=== PATIENT | female | born 1995 | race Caucasian/White ===

== ENCOUNTER 2020-06-30 13:08 | Emergency (ER) | payer BC, MEDICAID ==
[~2020-06-30] VITALS: Ht 162.6 cm; Wt 57.0 kg
[2020-06-30 14:15] LABS: BASOPHILS % (AUTO) 0.2 % (0-1); EOSINOPHILS % (AUTO) 0.3 % (0-6); HEMATOCRIT 39.1 % (35.0-45.0); HEMOGLOBIN 13.1 g/dl (12.0-16.0); LYMPHOCYTES # (AUTO) 1.3 X10'3 (1.1-4.8); LYMPHOCYTES % (AUTO) 9.6 % (21-51); MEAN CORPUSCULAR HEMOGLOBIN 31.3 PG (27.0-31.0); MEAN CORPUSCULAR HGB CONC 33.6 g/dL (33.0-36.5); MEAN CORPUSCULAR VOLUME 93.2 FL (78-98); MEAN PLATELET VOLUME 7.5 FL (7.4-10.4); MONOCYTES # (AUTO) 0.8 X10'3 (0-0.9); MONOCYTES % (AUTO) 5.8 % (2-12); NEUTROPHILS # (AUTO) 11.5 X10'3 (1.8-7.7); NEUTROPHILS % (AUTO) 84.1 % (42-75); PLATELET COUNT 269 X10'3 (140-440); RED BLOOD COUNT 4.19 X10'6 (4.20-5.60); RED CELL DISTRIBUTION WIDTH 13.4 % (11.5-14.5); WHITE BLOOD COUNT 13.6 X10'3 (4.5-11.0)
[2020-06-30 14:28] LABS: CLARITY,URINE CLOUDY (Clear); COLOR,URINE YELLOW (Yellow); GLUCOSE, URINE NEGATIVE (Neg); KETONES,URINE NEGATIVE (Neg); LEUKOCYTE ESTERASE ,URINE MODERATE (Neg); NITRITES, URINE POSITIVE (Neg); OCCULT BLOOD,URINE MODERATE (Neg); PROTEIN,URINE 30 mg/dl (Neg); UROBILINOGEN,URINE 0.2 E.U/dL (0.2-1.0)
[2020-06-30 14:29] LABS: UA COLLECTION TYPE CLN CATCH MIDSTREAM; URINE HCG NEGATIVE (NEG)
[2020-06-30 14:29] LABS: ALANINE AMINOTRANSFERASE 16 U/L (12-78); ALBUMIN 3.4 G/DL (3.4-5.0); ALBUMIN/GLOBULIN RATIO 0.8 (1.1-1.5); ALKALINE PHOSPHATASE 69 IU/L (46-116); ANION GAP 8 (8-16); ASPARTATE AMINO TRANSFERASE 16 U/L (10-37); BILIRUBIN,TOTAL 0.6 MG/DL (0.1-1.0); BLOOD UREA NITROGEN 7 MG/DL (7-18); BUN/CREATININE RATIO 8.9 (6.6-38.0); CALCIUM 8.9 MG/DL (8.5-10.1); CHLORIDE 101 MMOL/L (99-107); CREATININE 0.79 MG/DL (0.40-0.90); GLUCOSE 111 MG/DL (70-104); LIPASE 90 U/L (73-393); POTASSIUM 3.7 MMOL/L (3.5-5.1); SODIUM 134 MMOL/L (135-145); TOTAL CARBON DIOXIDE 25.1 MMOL/L (24-32); TOTAL PROTEIN 7.8 G/DL (6.4-8.2); eGFR 89 ML/MIN
[2020-06-30 14:38] LABS: MUCUS STRANDS MODERATE /LPF (Neg); SQUAMOUS EPITHELIAL CELL,UR FEW /LPF (FEW)
[2020-06-30 14:39] LABS: WBC CLUMPS,URINE FEW /HPF (NEGATIVE)
[2020-06-30 14:40] LABS: BACTERIA,URINE 4+ /HPF (Neg); RBC,URINE 0-2 /HPF (0-2); TRANSITIONAL EPI CELLS,URINE MODERATE /HPF; WBC,URINE TNTC /HPF (0-4)
[2020-06-30] MEDS ORDERED: CefTRIAXone/D5W-Rocephin 1gm 50 ML IV ONE (14:40)
[2020-06-30] MEDS ORDERED: normal saline 1000ML IV soln IVB ONE (14:40)
[2020-06-30] MEDS ORDERED: ketorolac tromethamine 15mg/ml inj. IV ONE (15:05)
[2020-06-30] MEDS ORDERED: CEPH500C5 PO (15:48)
[2020-06-30 16:04] VITALS: BP 107/64
== END 2020-06-30 16:06 | disposition home or self-care (01) ==
LOC: ER 13:08
DX: N39.0 Urinary tract infection, site not specified (principal); R51 Headache; F12.90 Cannabis use, unspecified, uncomplicated; R11.2 Nausea with vomiting, unspecified; R10.819 Abdominal tenderness, unspecified site; Z72.89 Other problems related to lifestyle; Z79.899 Other long term (current) drug therapy
CPT/HCPCS: 36415; 80053; 81001; 81025; 83690; 85025; 87077; 87088; 87186; 96365; 96375; 99284; J0696; J1885; J7030; 96361

== ENCOUNTER 2023-04-21 21:31 | Emergency (ER) | payer MEDICAID ==
[~2023-04-21] VITALS: Ht 160 cm; Wt 61.4 kg
[2023-04-21 21:52] VITALS: BP 114/88
== END 2023-04-21 23:48 ==
LOC: ER 21:31
DX: M25.512 Pain in left shoulder (principal); R07.9 Chest pain, unspecified; V98.8XXA Other specified transport accidents, initial encounter; Y93.89 Activity, other specified; Y92.89 Other specified places as the place of occurrence of the external cause; Y99.8 Other external cause status
CPT/HCPCS: 70450; 71045; 73030; 99284

== ENCOUNTER 2024-06-18 14:29 | Emergency (ER) | payer MEDICAID ==
[~2024-06-18] VITALS: Ht 160 cm; Wt 59.6 kg
[2024-06-18 14:35] VITALS: BP 149/88; PULSE 124; RESP 18; TEMP 97.8; O2SAT 97
[2024-06-18] MEDS: LEVONORGESTREL 1.5MG tablet 1.5 MG TABLET PO ONE (17:42)
[2024-06-18] MEDS: TINIDAZOLE 500 MG TABLET PO ONE (17:44)
[2024-06-18] MEDS: azithromycin 250mg tablet PO ONE (17:46)
[2024-06-18] MEDS: CefTRIAXone 500MG IM Kit w/LIDOcaine (for pt below or = to 150kg) IM ONE (17:47)
[2024-06-18] MEDS: ondansetron 4mg rapidly disintigrating tab PO ONE (18:20)
[2024-06-18 18:27] LABS: URINE HCG NEGATIVE (NEG)
== END 2024-06-18 21:01 | disposition home or self-care (01) ==
LOC: EEVIPCON 14:30 → ER 14:30
DX: Z04.41 Encounter for examination and observation following alleged adult rape (principal); F12.90 Cannabis use, unspecified, uncomplicated
CPT/HCPCS: 81025; 96372; 99284; J0696